=== PATIENT | female | born 1950 | race Caucasian/White ===

== ENCOUNTER 2020-01-13 17:47 | Emergency (ER) | payer BC, OTHER ==
[~2020-01-13] VITALS: Ht 165.1 cm; Wt 62.6 kg
[2020-01-13] MEDS ORDERED: ULTRAM 50MG TAB50 MG PO (19:05)
[2020-01-13 19:11] VITALS: BP 116/69
== END 2020-01-13 19:42 | disposition home or self-care (01) ==
LOC: ER 17:47
DX: M25.561 Pain in right knee (principal); E78.5 Hyperlipidemia, unspecified; Z88.8 Allergy status to other drugs, medicaments and biological substances; W18.39XA Other fall on same level, initial encounter; Y93.89 Activity, other specified; Y92.89 Other specified places as the place of occurrence of the external cause; Y99.8 Other external cause status